=== PATIENT | male | born 2000 | race Caucasian/White ===

== ENCOUNTER → 2020-03-06 | Outpatient (CLI) | payer BC ==
--- NOTE | 2020-03-06 16:04 | Diagnostic Imaging Report ---
INDICATION: Right elbow pain. TECHNIQUE: AP, oblique, and lateral views of the right elbow were obtained. FINDINGS: No fracture or acute bony abnormality is seen. There is no overt joint effusion. IMPRESSION: Negative right elbow. Dictated by: Dictated on workstation # [id number]
== END ==
LOC: RAD FS 15:12
PROVIDERS: ATTEND Nurse Practitioner
DX: M25.521 Pain in right elbow (principal)
CPT/HCPCS: 73080

== ENCOUNTER → 2022-09-19 | Outpatient (CLI) | payer BC ==
--- NOTE | 2022-09-19 13:43 | Diagnostic Imaging Report ---
INDICATION: Digestive symptoms. PROCEDURE: Ultrasound abdomen complete. TECHNIQUE: Multiple real-time grayscale images were obtained of the abdomen in various projections. EXAMINATION: Ultrasound complete 09/19/2022 FINDINGS: There is diffuse fatty infiltration throughout the liver with no focal masses appreciated. There is no intrahepatic biliary dilatation. Gallbladder wall is at the upper limits of normal with no cholelithiasis or pericholecystic fluid. Common duct is obscured by the overlying bowel gas. Visualized pancreas, aorta and IVC unremarkable. Spleen is at the upper limits of normal measuring 12.1 cm in length. The right kidney 12.3 cm in length, the left kidney measures 10.8 cm. There is no hydronephrosis or acute abnormality. There is no ascites. IMPRESSION: 1. Hepatic steatosis 2. Mild splenomegaly. 3. No evidence for acute cholecystitis. Dictated by: Dictated on workstation # [id number]
== END ==
LOC: CARD 09:00
PROVIDERS: ATTEND Family Medicine
DX: R01.1 Cardiac murmur, unspecified (principal); K76.0 Fatty (change of) liver, not elsewhere classified; R16.1 Splenomegaly, not elsewhere classified
CPT/HCPCS: 76700; C8929; 93306